=== PATIENT | female | born 1980 ===

== ENCOUNTER 2017-04-17 14:16 | Inpatient (IN) | payer MEDICAID ==
--- NOTE | 2017-04-17 14:53 | C.PDOC ---
History Of Present Illness 36-year-old female with PMHx of alcohol/substance Abuse, presents to the emergency department requesting detox from heroin, Xanax and alcohol. Patient' s last use of heroin was this morning. However she admits approx 3 days ago she tried to self detox at home from everything, and has been having multiple episodes of vomiting and diarrhea over that time. She is currently asymptomatic. Time Seen by Provider: 04/17/17 14:32 Chief Complaint (Nursing): Substance Abuse History Per: Patient History/Exam Limitations: no limitations Onset/Duration Of Symptoms: Persistent Current Symptoms Are (Timing): Still Present Modifying Factor(s): Alcohol, Narcotics, Other (Xanax) Severity: Moderate Past Medical History Reviewed: Historical Data, Nursing Documentation, Vital Signs Vital Signs: Last Vital Signs Temp 97.9 F 04/17/17 14:23 Pulse 97 H 04/17/17 14:23 Resp 20 04/17/17 14:23 BP 121/73 04/17/17 14:23 Pulse Ox 100 04/17/17 18:33 - Medical History PMH: No Chronic Diseases Family History: States: No Known Family Hx - Social History Hx Alcohol Use: Yes Hx Substance Use: Yes Review Of Systems Except As Marked, All Systems Reviewed And Found Negative. Constitutional: Negative for: Fever Cardiovascular: Negative for: Chest Pain Respiratory: Negative for: Shortness of Breath Gastrointestinal: Negative for: Nausea, Vomiting, Abdominal Pain, Diarrhea Musculoskeletal: Negative for: Back Pain Neurological: Negative for: Weakness, Numbness Physical Exam - Physical Exam Appears: Well, Non-toxic, No Acute Distress Skin: Warm, Dry, No Rash Head: Normacephalic Eye(s): bilateral: Normal Inspection Oral Mucosa: Moist Cardiovascular: Rhythm Regular Respiratory: Normal Breath Sounds, No Rales, No Rhonchi, No Wheezing Gastrointestinal/Abdominal: Normal Exam, Bowel Sounds, Soft, No Tenderness Extremity: Normal ROM, No Deformity Extremity: Bilateral: Atraumatic, Normal Color And Temperature, Normal ROM Neurological/Psych: Oriented x3 ED Course And Treatment - Laboratory Results Result Diagrams: 04/17/17 15:04 04/17/17 15:04 ECG: Interpreted By Me, Viewed By Me (NSR 93 bpm, normal axis, no U waves, no acute ST/T wave changes ) O2 Sat by Pulse Oximetry: 100 (RA) Pulse Ox Interpretation: Normal Progress Note: Blood work, UA, UPreg ordered and reviewed. Blood work showed hypokalemia, likely due to vomiting/diarrhea - PO Kdur and IV KCL + EKG ordered. Repear BMP to be done after potassium. Disposition - Disposition Disposition Time: 19:00 Condition: STABLE Forms: [facility] ([place]) - Clinical Impression Clinical Impression: Heroin dependence, Alcohol dependence, Benzodiazepine dependence - Scribe Statement The provider has reviewed the documentation as recorded by the Scribe (Fang Rodriguez) All medical record entries made by the Scribe were at my direction and personally dictated by me. I have reviewed the chart and agree that the record accurately reflects my personal performance of the history, physical exam, medical decision making, and the department course for this patient. I have also personally directed, reviewed, and agree with the discharge instructions and disposition. Physician Patient Turnover Patient Signed Over To: Amber Ortiz Handoff Comments: pending repeat BMP, med clearance for detox
[2017-04-17 15:11] LABS: BASO % 0.6 % (0.0-2.0); EOS # 0.1 K/uL (0.0-0.7); EOS % 1.4 % (0.0-4.0); HEMATOCRIT 39.2 % (34.0-47.0); LYMPH # 0.9 K/uL (1.0-4.3); MEAN CELL VOLUME 81.4 fL (81.0-99.0); MEAN CORPUSCULAR HEMOGLOBIN 26.8 pg (27.0-31.0); MEAN CORPUSCULAR HGB CONC 32.9 g/dL (33.0-37.0); MEAN PLATELET VOLUME 8.8 fL (7.2-11.7); MONO # 0.3 K/uL (0.0-0.8); RED CELL DISTRIBUTION WIDTH 15.4 % (11.5-14.5); WHITE BLOOD COUNT 7.5 K/uL (4.8-10.8)
[2017-04-17 15:25] LABS: RBC URINE 5 /hpf (0-3); URINE BILIRUBIN NEGATIVE (NEGATIVE); URINE BLOOD 3+ (NEGATIVE); URINE COLOR Yellow (YELLOW); URINE GLUCOSE (UA) NORMAL (Normal); URINE KETONE NEGATIVE (NEGATIVE); URINE LEUKOCYTE ESTERASE NEG Leu/uL (Negative); URINE PROTEIN NEGATIVE (NEGATIVE); URINE UROBILINOGEN NORMAL mg/dL (0.2-1.0); WBC URINE 1 /hpf (0-5)
[2017-04-17 15:31] LABS: ALB/GLOB RATIO 1.1 (1.0-2.1); ALCOHOL SERUM < 10 mg/dl (0-10); ALKALINE PHOSPHATASE 102 U/L (38-126); ALT/SGPT 35 U/L (9-52); AST/SGOT 26 U/L (14-36); BILIRUBIN,TOTAL 0.7 mg/dL (0.2-1.3); BLOOD UREA NITROGEN 14 mg/dL (7-17); CALCIUM 8.6 mg/dl (8.6-10.4); CARBON DIOXIDE 27 mmol/L (22-30); CHLORIDE 93 mmol/L (98-107); GFR AFRICAN-AMERICAN > 60; GLUCOSE,RANDOM 86 mg/dL (65-105); POTASSIUM 2.7 mmol/L (3.6-5.2); SODIUM 132 mmol/L (132-148); TOTAL PROTEIN 7.7 g/dL (6.3-8.3)
[2017-04-17] MEDS ORDERED: Potassium Chloride 20 mEq ER Tab PO STA (15:40)
[2017-04-17] MEDS ORDERED: Sodium Chloride 0.9% 500 ML IV ONE (15:55)
[2017-04-17] MEDS ORDERED: Potassium Chloride 20 mEq ER Tab PO ONE (16:04)
[2017-04-17] MEDS ORDERED: Sodium Chloride 0.9% 1,000 ML ONE ×2 (16:04)
[2017-04-17 20:45] LABS: BLOOD UREA NITROGEN 11 mg/dL (7-17); CALCIUM 8.2 mg/dl (8.6-10.4); CARBON DIOXIDE 28 mmol/L (22-30); CHLORIDE 98 mmol/L (98-107); GFR AFRICAN-AMERICAN > 60; GLUCOSE,RANDOM 135 mg/dL (65-105); POTASSIUM 3.6 mmol/L (3.6-5.2); SODIUM 133 mmol/L (132-148)
[2017-04-17] MEDS ORDERED: Aluminum Hydroxide/Magnesium Hydroxide Susp (30 mL) PO PRN (22:20)
--- NOTE | 2017-04-17 22:25 | PCM.BM ---
<Mariely Bauman - Last Filed: 04/17/17 22:23> Treatment Plan Problems - Problems identified on initial assessmt opiate withdrawal Date Initiated: 04/17/17 Time Initiated: 22:35 Assessment reference: NA Status: Active Alcohol abuse Date Initiated: 04/17/17 Time Initiated: 22:35 Assessment reference: NA Status: Active Treatment assets and liabiliti Patient Assests: cooperative, negotiates basic needs Patient Liabilities: substance abuse - Milieu Protocol Maintain good personal hygiene: daily Encourage regular showers, daily Remind patient to perform daily oral care, daily Assist patient to perform ADL's Maintain personal safety: every shift Educate patient to report safety concerns to staff, every shift Monitor environment for contraband/sharps Medication safety: Monitor for expected outcome, potential side effects: every shift, Assess barriers to learning: every shift, Assess readiness for medication education: every shift <Jennifer Conde - Last Filed: 04/18/17 14:41> Family Contact Family involvement: Famliy/SO not involved Family contact: Patient declines to allow family contact at present - Goals for Treatment Patient goals for treatment: Complete detox and discuss aftercare options with counselors. <Tej Cerda - Last Filed: 04/20/17 05:49> - Diagnosis (1) Opioid use disorder, severe, dependence Status: Acute Interventions: 04/20/17 05:48 * Assess 7x/week regarding severity of withdrawal * Educate regarding risks, benefits, side effects and alternatives of medications * Use Motivational Interviewing for abstinence * Use CBT for relapse prevention * Medication management for withdrawal symptoms * Encourage medication assisted treatment * (2) Alcohol dependence Status: Acute Interventions: 04/20/17 05:48 * Assess 7x/week regarding severity of withdrawal * Educate regarding risks, benefits, side effects and alternatives of medications * Use Motivational Interviewing for abstinence * Use CBT for relapse prevention * Medication management for withdrawal symptoms * Encourage medication assisted treatment *
--- NOTE | 2017-04-18 10:29 | PCM.PSYCH ---
Initial Psychiatric Evaluation - Initial Psychiatric Evaluation Type of Admission: Voluntary Legal Status: Capacity Chief Complaint (in patient's own words): I came in to get help.' History of Present Illness and Precipitating Events: Patient is a 36-year-old single CF, who lives alone but unemployed, presented to ED for heroin detoxification. Patient reports she uses 1 bundle of heroin intravenously daily, last use was 2 days ago, when she injected 2 bags. Patient also reports she also uses 4mg of Xanax daily and reports history of drinking almost 1-2 pints of vodka daily. Patient reports she also uses 4mg of Xanax daily. Patient reports that she wanted to become sober, so she came to the detox to get help. Patient reports of withdrawal symptoms including sweating, headaches, anxiety, nausea and cramps. However, she denies any feelings of hopelessness and helplessness. She denies any suicidal ideation or homicidal ideation. Patient denies any auditory or visual hallucinations or any psychotic symptoms. Denies any manic symptoms. Denies any other substance abuse. Past psychiatric history Patient reports h/ multiple detoxes in the past, last one was at [facility] , last month. Patient denies any past history of inpatient psychiatric hospitalizations or any history of follow-up with any psychiatrist. Patient denies any history of suicidal ideation or attempt or any history of homicidal ideation or attempt in the past. Current Medications: Active Medications Generic Name Dose Route Start Last Admin Trade Name Freq PRN Reason Stop Dose Admin Al Hydrox/Mg Hydrox/Simethicone 30 ml 04/17/17 22:20 Maalox 30 Ml PO TID PRN Indigestion / Heartburn Clonidine HCl 0.1 mg 04/17/17 22:20 Catapres PO Q8 PRN COWS Score More or Equal to 5 Gabapentin 300 mg 04/17/17 22:30 04/18/17 10:20 Neurontin PO 300 mg BID TOMAS Administration Hydroxyzine HCl 25 mg 04/17/17 22:21 Atarax PO Q4H PRN Anxiety Ibuprofen 400 mg 04/17/17 22:21 Motrin Tab PO Q6H PRN Pain, moderate (4-7) Loperamide HCl 2 mg 04/17/17 22:20 Imodium PO Q8 PRN Diarrhea Lorazepam 1 mg 04/17/17 22:21 04/18/17 10:19 Ativan PO 1 mg Q6H PRN Administration benzo withdrawal Ondansetron HCl 4 mg 04/17/17 22:20 Zofran Tab PO Q8 PRN Nausea/Vomiting Trazodone HCl 100 mg 04/17/17 22:21 Desyrel PO HS PRN Insomnia Past Psychiatric History - Past Psychiatric History Previous Treatment History: Inpatient Pertinent Medical Hx (Current Medical&Sleep Prob, Allergies): Allergies Allergy/AdvReac Type Severity Reaction Status Date / Time No Known Allergies Allergy Verified 04/17/17 14:45 No Known Home Med 04/17/17 Review of Systems - Review of Systems All systems: reviewed and no additional remarkable complaints except - Psychiatric Psychiatric: Anxiety, Irritability Mental Status Examination - Personal Presentation Personal Presentation: Looks stated age - Affect Affect: Constricted - Motor Activity Motor Activity: Calm - Reliability in Providing Information Reliability in Providing Information: Good - Speech Speech: Organized - Mood Mood: Anxious - Formal Thought Process Formal Thought Process: No Impairment - Obsessions/Compulsions Obsessions: No Compulsions: No - Cognitive Functions Orientation: Person, Place, Situation, Time Sensorium: Alert Attention/Concentration: Attentive Abstract Thinking: Reading Estimate of Intelligence: Below average Judgement: Imparied, as evidence by: Poor judgement, Intact, as evidence by: Insight regarding need for hospitalization - Risk Risk: Withdrawal, Diminished functioning - Strength & Assets Inventory Strength & Assets Inventory: Intelligence - Limitations Limitations: Living alone DSM 5 DX - DSM 5 DSM 5 Diagnosis: Opioid use disorder severe Opioid withdrawal Alcohol use disorder severe Alcohol withdrawal Sedative/Hypnotic use disorder severe - Recommended/Plan of Treatment Treatment Recommendations and Plan of Treatment: Opioid use disorder severe CBT Psychoeducation Supportive therapy, individual therapy Use [place] for abstinence Opioid withdrawal CBT Psychoeducation Supportive therapy, individual therapy Clonidine when necessary Subutex taper Sedative/Hypnotic use disorder severe Alcohol use disorder severe CBT Psychoeducation Supportive therapy, individual therapy Use [place] for abstinence Alcohol withdrawal CBT Psychoeducation Supportive therapy, individual therapy Ativan prn - Smoking Cessation Smoking Cessation Initiated: No
[2017-04-18] MEDS: Buprenorphine Hydrochloride 2 mg SL ONE ×2 (16:17→18:05)
[2017-04-18] MEDS: Buprenorphine Hydrochloride 2 mg SL SCH ×4 (16:20→17:34)
[2017-04-18 17:45] LABS: ALB/GLOB RATIO 0.9 (1.0-2.1); ALKALINE PHOSPHATASE 84 U/L (38-126); ALT/SGPT 36 U/L (9-52); AST/SGOT 16 U/L (14-36); BILIRUBIN,TOTAL 0.5 mg/dL (0.2-1.3); BLOOD UREA NITROGEN 8 mg/dL (7-17); CALCIUM 8.5 mg/dl (8.6-10.4); CARBON DIOXIDE 24 mmol/L (22-30); CHLORIDE 104 mmol/L (98-107); GFR AFRICAN-AMERICAN > 60; GLUCOSE,RANDOM 89 mg/dL (65-105); POTASSIUM 3.3 mmol/L (3.6-5.2); SODIUM 138 mmol/L (132-148); TOTAL PROTEIN 7.6 g/dL (6.3-8.3)
[2017-04-18 18:10] LABS: THYROID STIMULATING HORMONE 0.31 mIU/L (0.46-4.68)
[2017-04-19] MEDS ORDERED: Buprenorphine Hydrochloride 2 mg SL SCH ×2 (10:00→15:19)
[2017-04-19] MEDS: Multiple Vitamins Tab PO SCH (12:58)
--- NOTE | 2017-04-19 16:53 | CARD ---
APPROVED REPORT EKG Measurement Heart [id number] <Conclusion> Normal sinus rhythm Normal ECG
[2017-04-19] MEDS ORDERED: Buprenorphine Hydrochloride 2 mg SL ONE ×2 (17:00→21:36)
--- NOTE | 2017-04-20 05:48 | PCM.PYCHPN ---
Psychiatric Progress Note - Psychiatric Progress Note Patient seen today, length of contact: 16 min Patient Chief Complaint: "Not well" Problems Identified/Issues Discussed: The pt is seen, chart reviewed, case discussed with staff. The pt is compliant with medications and reports no side-effects. Symptoms are NOT improving yet as she is nauseas a lot and thus needs more time to stabilize. Extra subutex and prn's ordered After care discussed, support and psychoeducation given. Medication Change: Yes (detox ordered) Medical Record Reviewed: Yes Mental Status Examination - Cognitive Function Orientation: Person, Place, Situation, Time Memory: Impaired Attention: Poor Concentration: Poor Association: WNL Fund of Knowledge: WNL - Mood Mood: Anxious - Affect Affect: Constricted - Speech Speech: Appropriate - Formal Thought Process Formal Thought Process: No Impairment - Suicidal Ideation Suicidal Ideation: No - Homicidal Ideation Homicidal Ideation: No Goal/Treatment Plan - Goal/Treatment Plan Need for Continued Stay: Discharge may exacerbated symptoms, Severe functional impairment Progress Toward Problem(s) and Goals/Treatment Plan: Subutex detox Librium detox Extra doses K-Dur and Ca Zofran IM/PO As needed medications Gabapentin for augmentation Attend groups and activities Supportive therapy and psychoeducation [place] for abstinence CBT for relapse prevention Encourage MAT Refer to rehab or IOP Attend self-help groups as well 34 min
[2017-04-20] MEDS: Buprenorphine Hydrochloride 2 mg SL SCH ×2 (09:09→10:00)
[2017-04-20 09:49] LABS: AMYLASE < 30 U/L (30-110)
[2017-04-20 09:52] LABS: FREE T4 1.42 ng/dL (0.78-2.19)
[2017-04-20] MEDS ORDERED: Ergocalciferol 50,000 Intl Units Cap PO SCH (10:00)
[2017-04-20 10:06] LABS: THYROID STIMULATING HORMONE 0.35 mIU/L (0.46-4.68)
[2017-04-20] MEDS: Potassium Chloride 20 mEq ER Tab PO SCH (11:02)
[2017-04-20] MEDS: Multiple Vitamins Tab PO SCH (11:02)
--- NOTE | 2017-04-20 12:58 | PCM.PYCHPN ---
Psychiatric Progress Note - Psychiatric Progress Note Patient seen today, length of contact: 16 min Patient Chief Complaint: I m still withdrawing.' Problems Identified/Issues Discussed: Patient seen and evaluated, chart reviewed and discussed with the nurse. Patient reports some improvement in the withdrawal symptoms but still reports anxiety, headaches, joint pains and sweating. She reports improvement in her mood and denies any SI/HI/AVH. She is taking medication and denies any side effects. She needs more time for stabilization. Supportive therapy and psychoeducation were given. Medication Change: Yes (detox ordered) Medical Record Reviewed: Yes Mental Status Examination - Cognitive Function Orientation: Person, Place, Situation, Time Memory: Impaired Attention: WNL Concentration: Poor Association: WNL Fund of Knowledge: WNL - Mood Mood: Anxious - Affect Affect: Constricted - Speech Speech: Appropriate - Formal Thought Process Formal Thought Process: No Impairment - Suicidal Ideation Suicidal Ideation: No - Homicidal Ideation Homicidal Ideation: No Goal/Treatment Plan - Goal/Treatment Plan Need for Continued Stay: Discharge may exacerbated symptoms, Severe functional impairment Progress Toward Problem(s) and Goals/Treatment Plan: Opioid use disorder severe CBT Psychoeducation Supportive therapy, individual therapy Use [place] for abstinence Opioid withdrawal CBT Psychoeducation Supportive therapy, individual therapy Clonidine when necessary Subutex taper Sedative/Hypnotic use disorder severe Alcohol use disorder severe CBT Psychoeducation Supportive therapy, individual therapy Use [place] for abstinence Alcohol withdrawal CBT Psychoeducation Supportive therapy, individual therapy Ativan prn - Smoking Cessation Smoking Cessation Initiated: No
[2017-04-20] MEDS ORDERED: Buprenorphine Hydrochloride 2 mg SL ONE (16:00)
[2017-04-21] MEDS: Buprenorphine Hydrochloride 2 mg SL SCH (10:14)
[2017-04-21] MEDS: Multiple Vitamins Tab PO SCH (10:14)
[2017-04-21] MEDS: Potassium Chloride 20 mEq ER Tab PO SCH (10:14)
[2017-04-21 13:13] LABS: BLOOD UREA NITROGEN 10 mg/dL (7-17); CALCIUM 9.3 mg/dl (8.6-10.4); CARBON DIOXIDE 31 mmol/L (22-30); CHLORIDE 97 mmol/L (98-107); GFR AFRICAN-AMERICAN > 60; GLUCOSE,RANDOM 119 mg/dL (65-105); POTASSIUM 4.3 mmol/L (3.6-5.2); SODIUM 139 mmol/L (132-148)
--- NOTE | 2017-04-21 14:25 | PCM.PYCHPN ---
Psychiatric Progress Note - Psychiatric Progress Note Patient seen today, length of contact: 18 min Patient Chief Complaint: "Im not feeling too good" Problems Identified/Issues Discussed: The pt is seen, chart reviewed, case discussed with staff. The pt is compliant with medications and reports no side-effects. Slight improvement in symptoms because she does not feel any pain or chills However, she reported still feeling nausea and had 1 episode of vomiting this morning. Pt stated the past dose of Zofran provided minimal relief Pt needs more time for stabilization After care discussed, support and psychoeducation given. Medication Change: Yes (detox ordered) Medical Record Reviewed: Yes Mental Status Examination - Cognitive Function Orientation: Person, Place, Situation, Time Memory: Impaired Attention: WNL Concentration: Poor Association: WNL Fund of Knowledge: WNL - Mood Mood: Depressed, Anxious - Affect Affect: Constricted - Speech Speech: Appropriate - Formal Thought Process Formal Thought Process: No Impairment - Suicidal Ideation Suicidal Ideation: No - Homicidal Ideation Homicidal Ideation: No Goal/Treatment Plan - Goal/Treatment Plan Need for Continued Stay: Discharge may exacerbated symptoms, Severe functional impairment Progress Toward Problem(s) and Goals/Treatment Plan: Subutex detox Librium detox Extra doses K-Dur and Ca Continue Zofran IM/PO As needed medications Gabapentin for augmentation Attend groups and activities Supportive therapy and psychoeducation [place] for abstinence CBT for relapse prevention Encourage MAT Refer to rehab or IOP Pt stated intrest in a 1 month IOP so discuss a 1 month IOP Attend self-help groups as well
[2017-04-22] MEDS: Multiple Vitamins Tab PO SCH (10:16)
--- NOTE | 2017-04-22 10:32 | PCM.PYCHPN ---
Psychiatric Progress Note - Psychiatric Progress Note Patient seen today, length of contact: 18 min Patient Chief Complaint: I m feeling weak.' Problems Identified/Issues Discussed: Patient seen and evaluated, chart reviewed and discussed with the nurse. Patient reports of weakness and still reports withdrawal symptoms including headaches, joint pains and sweating. She reports improvement in her mood and denies any SI/HI/AVH. She is taking medication and denies any side effects. She needs more time for stabilization. Supportive therapy and psychoeducation were given. Medication Change: Yes (detox ordered) Medical Record Reviewed: Yes Mental Status Examination - Cognitive Function Orientation: Person, Place, Situation, Time Memory: Impaired Attention: WNL Concentration: Poor Association: WNL Fund of Knowledge: WNL - Mood Mood: Depressed, Anxious - Affect Affect: Constricted - Speech Speech: Appropriate - Formal Thought Process Formal Thought Process: No Impairment - Suicidal Ideation Suicidal Ideation: No - Homicidal Ideation Homicidal Ideation: No Goal/Treatment Plan - Goal/Treatment Plan Need for Continued Stay: Discharge may exacerbated symptoms, Severe functional impairment Progress Toward Problem(s) and Goals/Treatment Plan: Opioid use disorder severe CBT Psychoeducation Supportive therapy, individual therapy Use [place] for abstinence Opioid withdrawal CBT Psychoeducation Supportive therapy, individual therapy Clonidine when necessary Subutex taper Sedative/Hypnotic use disorder severe Alcohol use disorder severe CBT Psychoeducation Supportive therapy, individual therapy Use [place] for abstinence Alcohol withdrawal CBT Psychoeducation Supportive therapy, individual therapy Ativan prn - Smoking Cessation Smoking Cessation Initiated: No
[2017-04-22] MEDS: Buprenorphine Hydrochloride 2 mg SL SCH (11:02)
[2017-04-22 13:07] VITALS: RESP 18
[2017-04-23 05:30] VITALS: O2SAT 98
--- NOTE | 2017-04-23 08:48 | PCM.PYCHDC ---
Mental Status Examination - Mental Status Examination Orientation: Person, Place, Situation, Time Discharge Summary - Discharge Note Consultations:: List each consultation separately and include: 1. Reason for request. 2. Findings. 3. Follow-up Summary of Hospital Course include:: 1. Description of specific treatment plan utilized for patients during their course of treatmen. 2. Summarize the time- course for resolution of acute symptoms and/or regressed behaviors. 3. Describe issues identified and worked on during hospitalization. 4. Describe medication utilized. 5. Describe medical problems identified and treated. 6. Reassessment of suicide risk Summary of Hospital Course: She is accepted by [facility] in [place] and her BF will drive. She will stay 9 months, followed by MAT/IOP - Diagnosis (1) Opioid use disorder, severe, dependence Current Visit: Yes Status: Acute (2) Alcohol dependence Current Visit: Yes Status: Acute - Final Diagnosis (DSM 5) Condition upon Discharge: FAIR Disposition: HOME/ ROUTINE Follow-up Treatment Plan: Subutex detox Librium detox Extra doses K-Dur and Ca Continue Zofran IM/PO As needed medications Gabapentin for augmentation Attend groups and activities Supportive therapy and psychoeducation [place] for abstinence CBT for relapse prevention Encourage MAT Refer to rehab or IOP Pt stated intrest in a 1 month IOP so discuss a 1 month IOP Attend self-help groups as well Prescriptions/Medication Reconciliation: Folic Acid 1 mg PO DAILY #30 tab Gabapentin [Neurontin] 300 mg PO BID #60 cap Multivitamins [Hexavitamin] 1 tab PO DAILY #30 tab QUEtiapine [SEROquel] 50 mg PO HS #30 tab traZODone [Desyrel] 100 mg PO HS PRN #30 tab PRN Reason: Insomnia
[2017-04-23] MEDS: Multiple Vitamins Tab PO SCH (09:18)
[2017-04-23 09:21] VITALS: BP 109/76; PULSE 99; TEMP 97.9
== END 2017-04-23 09:30 | disposition home or self-care (01) | DRG 745 ==
LOC: C.ER 14:16 → C.7D 21:42 → UNDOADMIN 21:42
PROVIDERS: ADMIT Psychiatry & Neurology Psychiatry; ATTEND Psychiatry & Neurology Psychiatry
PROC: HZ52ZZZ Individual Psychotherapy for Substance Abuse Treatment, Cognitive-Behavioral (ICD-10-PCS; principal; 2017-04-17)
PROC: HZ59ZZZ Individual Psychotherapy for Substance Abuse Treatment, Supportive (ICD-10-PCS; 2017-04-17)
PROC: HZ56ZZZ Individual Psychotherapy for Substance Abuse Treatment, Psychoeducation (ICD-10-PCS; 2017-04-17)
PROC: HZ57ZZZ Individual Psychotherapy for Substance Abuse Treatment, Motivational Enhancement (ICD-10-PCS; 2017-04-17)
PROC: HZ2ZZZZ Detoxification Services for Substance Abuse Treatment (ICD-10-PCS; 2017-04-17)
DX: F11.23 Opioid dependence with withdrawal (principal); F13.20 Sedative, hypnotic or anxiolytic dependence, uncomplicated; F41.9 Anxiety disorder, unspecified; F10.230 Alcohol dependence with withdrawal, uncomplicated